=== PATIENT | male | born 1955 | race Caucasian/White ===

== ENCOUNTER 2024-01-12 09:33 | Outpatient (CLI) | payer BC | END 2024-01-12 09:34 | disposition home or self-care (01) | LOC: CSHMRI 09:33 | PROVIDERS: ATTEND Family Medicine | DX: M47.22 Other spondylosis with radiculopathy, cervical region (principal); M48.02 Spinal stenosis, cervical region; M48.03 Spinal stenosis, cervicothoracic region; M43.8X2 Other specified deforming dorsopathies, cervical region | CPT/HCPCS: 72141 ==